=== PATIENT | male | born 1970 | race Caucasian/White ===

== ENCOUNTER 2017-08-31 10:27 | Emergency (ER) | payer SELFPAY ==
--- NOTE | 2017-08-31 11:35 | UC ---
Respiratory Complaint HPI - HPI Summary HPI Summary: Pt c/o sudden onset cough, fever, chills, chest congestion X 2 days. - History of Current Complaint Hx Obtained From: Patient Onset/Duration: Sudden Onset, Lasting Days, Still Present Timing: Constant Severity Initially: Mild Severity Currently: Mild Character: Cough: Productive Aggravating Factors: Deep Breaths, Recumbent Position Alleviating Factors: Upright Position Associated Signs And Symptoms: Positive: Fever, Chills, URI, Nasal Congestion - Risk Factors Pulmonary Embolism Risk Factors: Negative Cardiac Risk Factors: Negative Pseudomonas Risk Factors: Negative Tuberculosis Risk Factors: Negative <Yudi Garcia NP - Last Filed: 08/31/17 11:44> <Kristina Schulz - Last Filed: 08/31/17 13:31> - History of Current Complaint Chief Complaint: UCRespiratory Stated Complaint: COLD SYMPTOMS Time Seen by Provider: 08/31/17 11:07 - Allergies/Home Medications Allergies/Adverse Reactions: Allergies Allergy/AdvReac Type Severity Reaction Status Date / Time No Known Allergies Allergy Verified 08/31/17 11:00 Home Medications: Home Medications [id number] W/ APAP [Delsym Cough + Cold D... [id number] mg/10Ml] 1 liq PO Q4H PRN 08/31/17 [History Confirmed 08/31/17] PMH/Surg Hx/FS Hx/Imm Hx Previously Healthy: Yes - Surgical History Surgical History: Yes Surgery Procedure, Year, and Place: hernia - Family History Known Family History: Positive: Cardiac Disease - Social History Occupation: Employed Full-time Lives: With Family Alcohol Use: None Substance Use Type: None Smoking Status (MU): Never Smoked Tobacco Have You Smoked in the Last Year: No - Immunization History Most Recent Influenza Vaccination: not this season Vaccination Up to Date: No <Yudi Garcia NP - Last Filed: 08/31/17 11:44> Review of Systems Constitutional: Fever, Chills, Fatigue Skin: Negative Eyes: Negative ENT: Sinus Congestion Respiratory: Cough Cardiovascular: Negative Gastrointestinal: Negative Genitourinary: Negative Motor: Negative Neurovascular: Negative Musculoskeletal: Negative Neurological: Headache Psychological: Negative Is Patient Immunocompromised?: No All Other Systems Reviewed And Are Negative: Yes <Yudi Garcia NP - Last Filed: 08/31/17 11:44> Physical Exam Triage Information Reviewed: Yes Appearance: Ill-Appearing Vital Signs: Initial Vital Signs Temp 100 F 08/31/17 11:01 Pulse 102 08/31/17 11:01 Resp 20 08/31/17 11:01 BP 142/88 08/31/17 11:01 Pulse Ox 97 08/31/17 11:01 Vital Signs Reviewed: Yes Eye Exam: Normal ENT Exam: Other ENT: Positive: Nasal congestion Dental Exam: Normal Neck exam: Normal Respiratory Exam: Other Respiratory: Positive: Decreased breath sounds - bilateral bases Cardiovascular Exam: Normal Cardiovascular: Positive: Tachycardia Musculoskeletal Exam: Normal Neurological Exam: Normal Psychological Exam: Normal Skin Exam: Normal <Yudi Garcia NP - Last Filed: 08/31/17 11:44> Vital Signs: Initial Vital Signs Temp 100 F 08/31/17 11:01 Pulse 102 08/31/17 11:01 Resp 20 08/31/17 11:01 BP 142/88 08/31/17 11:01 Pulse Ox 97 08/31/17 11:01 <Kristina Schulz - Last Filed: 08/31/17 13:31> UC Diagnostic Evaluation - Laboratory O2 Sat by Pulse Oximetry: 97 <Yudi Garcia NP - Last Filed: 08/31/17 11:44> Respiratory Course/Dx - Course Course Of Treatment: I discussed with th ept to follow up with PCP or return to clinic. Additionally, I instructed the pt to seek immediate care if symptoms do not improve in the next 24- 48 hours. - Differential Dx/Diagnosis Differential Diagnosis/HQI/PQRI: Bronchitis, Pulmonary Embolism, Other - pneumonia Provider Diagnoses: pneumonia <Yudi Garcia NP - Last Filed: 08/31/17 11:44> Discharge <Yudi Garcia NP - Last Filed: 08/31/17 11:44> <Kristina Schulz - Last Filed: 08/31/17 13:31> - Discharge Plan Condition: Stable Disposition: HOME Prescriptions: Albuterol HFA INHALER* [Ventolin HFA Inhaler*] 1 - 2 puff INH Q4H PRN #1 mdi PRN Reason: Wheezing Azithromycin TAB* [Zithromax TAB (Z-ERIKA) 250 mg #6 tabs] 2 tab PO .TODAY, THEN 1 DAILY #1 erika Benzonatate CAP* [Tessalon 100 MG CAP*] 100 mg PO Q8H PRN #30 cap PRN Reason: Cough Patient Education Materials: Acute Bronchitis (ED) Forms: *Work Release Referrals: [facility] [Outside] - If Needed No Primary Care Phys,NOPCP [Primary Care Provider] - Attestation Statement User Type: Provider - I was available for consult. This patient was seen by the STEPHANI. The patient was not presented to, seen by, or examined by me. -Janie <Kristina Schulz - Last Filed: 08/31/17 13:31>
== END 2017-08-31 11:44 | disposition home or self-care (01) ==
LOC: UCCORT 10:27
DX: J18.9 Pneumonia, unspecified organism (principal)
CPT/HCPCS: 87502; 99202; G0463